=== PATIENT | male | born 1935 ===

== ENCOUNTER → 2018-03-02 | Emergency (ER) | payer OTHER ==
[~2018-03-02] VITALS: Ht 167.6 cm; Wt 66.7 kg
[~2018-03-02] MED LIST: ASA81 MG; GLUCOTROL10 MG; ISORDIL10 MG; LIPITOR40 MG; PLAVIX75 MG; SIMVASTATIN40 MG; SYNTHROID50 MCG
== END | disposition left against medical advice (07) ==
LOC: ER 10:26
DX: Z53.20 Procedure and treatment not carried out because of patient's decision for unspecified reasons (principal)